=== PATIENT | male | born 1950 | race Caucasian/White ===

== ENCOUNTER → 2024-07-30 06:56 | Outpatient (REF) | payer MEDICARE, BC, SELFPAY | LOC: PAVMRI 06:56 | PROVIDERS: ATTENDING PHYSICIAN Orthopaedic Surgery; FAMILY PHYSICIAN Family Medicine | DX: M25.561 Pain in right knee (principal) | CPT/HCPCS: 73721 ==

== ENCOUNTER → 2025-02-18 09:25 | Outpatient (REF) | payer MEDICARE, BC, SELFPAY | LOC: RCS 09:25 | PROVIDERS: ATTENDING PHYSICIAN Internal Medicine; FAMILY PHYSICIAN Family Medicine | DX: R00.1 Bradycardia, unspecified (principal) | CPT/HCPCS: 93225; 93226 ==

== ENCOUNTER → 2025-02-28 08:00 | Outpatient (REF) | payer MEDICARE, BC, SELFPAY | LOC: HWRCS 08:00 | PROVIDERS: ATTENDING PHYSICIAN Internal Medicine; FAMILY PHYSICIAN Family Medicine | DX: R00.1 Bradycardia, unspecified (principal); I10 Essential (primary) hypertension | CPT/HCPCS: 93306 ==

== ENCOUNTER 2025-03-09 07:45 | Day surgery (SDC) | payer MEDICARE, BC, SELFPAY ==
[2025-03-09] VITALS (8 sets, daily range): BP systolic 104–160; BP diastolic 58–82; BMI 26.3
--- NOTE | 2025-03-09 12:56 | ITS.CL.PACE ---
[employer] - Pacemaker Implant
Pacemaker Implant
Procedure Report:
Dual Chamber Pacemaker Placement:
Mr. Friend is a very pleasant 75 yrs old gentleman who presented with Tachy Case syndrome, severe symptomatic bradycardia and is recommended for PPM placement.
Indications: Sick sinus syndrome
Date of the Procedure:
03/09/25
Pre-Operative Diagnosis: Sick sinus syndrome
Post-Operative Diagnosis: Sick sinus syndrome
Procedure Performed: DUAL CHAMBER PACEMAKER IMPLANTATION
Performing Physician:
Kp Pettit MD
Assistants:
EP staff
Anesthesia:
See anethesia report
Pre-operative antibiotics:
Ancef
Detailed Description of the Procedure:
The patient was identified using hospital identification and informed consent obtained for the procedure. The risks were explained including, but not limited to: Bleeding, infection, arrhythmia, stroke, vascular/cardiac/lung puncture, surgery,
pacemaker dependency/device malfunction. All questions were answered.
The patient was brought to the electrophysiology laboratory in stable condition in fasting state. Continuous electrocardiographic and hemodynamic monitoring was initiated.
The initial rhythm was sinus bradycardia. Patient did have transient atrial fibrillation and came out to sinus case spotaneously.
A surgical pause and time out was performed immediately prior to the procedure with review of her medical history, recent labs, allergies and medications with site of procedure identified and consent noted in the chart. Antibiotics pre operatively
given. All team members concurred.
The procedure site was meticulously prepared with surgical scrub and allowed to dry with no pooling. Sterile draping was applied to cover the procedure site. The image intensifier was draped with sterile bag and positioned over the patient.
The left infraclavicular region was prepped and draped in the usual sterile fashion. Local anesthesia was administered subcutaneously using 1% lidocaine / Bupivacaine. The left cephalic vein cutdown was performed with an incision at the
delto-pectoral groove, and vascular sheaths were introduced for lead access. These were advanced into the right ventricle and the right atrium.
There were extreme tortuosity noted in the subclavian vein and long sheaths were needed. The cardiac chambers were rotated as well.
The right ventricular lead was secured in position with an active fixation technique at the apical septal location.
The RA lead was attached in the right atrial appendage with active fixation.
There was excellent sensing, pacing, and impedance from the leads, with no diaphragmatic stimulation at 10 V output.�Bovie cautery, antibiotics, and fluoroscopy were used.
The sheaths were withdrawn, and the thresholds remained acceptable. The leads were secured in position at the venous entry site with 2-0 Ti-Cron suture. A pocket was fashioned contiguous to the incision. The electrode terminals were connected to the
pulse generator, which was placed into the pocket.
The device was anchored to the underlying fascia using 2-0 Ti-Cron suture.
The wound was irrigated thoroughly with antibiotic solution.
The wound was closed in 3 layers using 2-0 V loc then two layers of 4-0 Biosyn sutures to the dermis. Steri-strips were applied externally and covered with Aquacel bandage.
Procedure End:
The procedure was tolerated well.
Estimated Blood loss:
10 cc
Specimens Removed:
No cultures and no specimens were obtained. No intraoperative pathology was identified.
Fluoro time:
6.5 min / 6.06Aorc5
Urine output:
None
Packs / Drains/ Tubes:
None
Instrument / Sponge Count Correct:
Yes
Complications of the Procedure:
None
Condition of Patient at Time of Transfer:
Hemodynamically stable with no neurological or vascular compromise.
Device information:�
Generator: M-Factor; Model: W1DR01; Serial # [id number]�
Atrial Lead:
Medtronic; Model: 5076-52; Serial # [id number]�
Measured data in the right atrium was sensing of 2.5 mV, impedance of 494 ohms and threshold of 0.75 V at 0.4ms.
RV Lead:
Medtronic; Model: 5076-58; Serial # [id number]
Measured data in the RV lead was sensing of 4.5mV, impedance of 760 ohms and threshold of 0.75 V at 0.4ms�
Case parameter settings were AAIR < = > DDDR 60-130 bpm. �
Mode Switch: On
Paced AV interval: 180ms
Sensed AV interval: 150 ms.
Rate Adaptive A-V Interval: On
Output parameters:
Amplitude (V) Pulse Width (ms) Sensitivity (mV)
RA: 3.5 0.4 0.3
RV: 3.5 0.4 0.9
Summary:
Successful implantation of MRI compatible dual chamber Medtronic pacemaker
Results/Recommendations:
-Please follow up CXR�
1. Please provide patient with adequate pain control�
Instructions to be given to patient:�
- Please follow up with [facility] at [address] [place] [address] ([phone]) to get your wound checked within 14 days of your discharge.
- Do not wet incision site until after it is evaluated at cardiology clinic. No soaking or bath until then. Showers or Sponge baths are OK.�Dab dry the area after a shower.
- Do not lift left elbow above shoulder, particularly with sudden jerking movements, for 1 month�
- Do not lift anything weighing more than 10 pounds with the left arm for 1 month�
- If you notice any fevers, shortness of breath, lightheadedness, chest pain, or worsening swelling in the wound site, please contact the arrhythmia clinic, contact your indirect sales representative, or present to the hospital for evaluation.�
Kp Pettit MD
Electrophysiology
[2025-03-09] MEDS: ANCEF 5 IV (15:32)
--- NOTE | 2025-03-09 15:32 | W.PN.UPDATE ---
Update Note
Progress Note Update
75yo WM s/p DC PPM (same day). He denies cp, sob, branden diet, site c/d/i no HT, EKG apaced, CXR no PTX leads in good position. Activity restrictions reviewed. He will have incision check in 1 week. He is for d/c home after 4pm and one more dose abx.
== END 2025-03-09 15:55 | disposition home or self-care (01) ==
LOC: CATH 07:45
PROVIDERS: ATTENDING PHYSICIAN Internal Medicine Cardiovascular Disease; FAMILY PHYSICIAN Family Medicine; OTHER PHYSICIAN Internal Medicine
DX: I49.5 Sick sinus syndrome (principal); Z79.899 Other long term (current) drug therapy
CPT/HCPCS: 33208; 71045; 93005; C1785; C1898; Q9967